=== PATIENT | female | born 1950 | race Caucasian/White ===

== ENCOUNTER → 2016-04-19 | Outpatient (CLI) | payer BC ==
[~2016-04-19] MED LIST: hormone
--- NOTE | 2016-04-19 15:50 | Diagnostic Imaging Report ---
INDICATION: A 66-year-old female. COMPARISON: 04/07/2014. FINDINGS: This scan is considered osteopenic according to the World Health Organization guidelines. The lowest T score is -2.0 in the lumbar spine. This indicates an increased risk of fracture. Please refer to the detailed Bone Density report faxed separately from this report. IMPRESSION: 1. Osteopenia with a moderate fracture risk. 2. Since prior examination, there has been no significant change in bone mineral density of the lumbar spine or hips. Dictated by: Dictated on workstation # [id number]
== END ==
LOC: RAD 13:57
PROVIDERS: ATTEND Internal Medicine
DX: Z78.0 Asymptomatic menopausal state (principal); M85.89 Other specified disorders of bone density and structure, multiple sites
CPT/HCPCS: 77080